=== PATIENT | female | born 1940 | race Caucasian/White ===

== ENCOUNTER → 2020-01-15 14:54 | Outpatient (BNVA) | payer MEDICARE, OTHER, SELFPAY | PROVIDERS: Family Provider Family Medicine; PCP Family Medicine; Visit Provider Nurse Practitioner Family | DX: R39.89 Other symptoms and signs involving the genitourinary system (principal); N30.20 Other chronic cystitis without hematuria | CPT/HCPCS: 81001 ==

== ENCOUNTER → 2020-02-19 12:58 | Outpatient (BNVA) | payer MEDICARE, OTHER, SELFPAY | PROVIDERS: Family Provider Family Medicine; PCP Family Medicine; Visit Provider Nurse Practitioner Family | DX: R39.89 Other symptoms and signs involving the genitourinary system (principal) | CPT/HCPCS: 81001 ==

== ENCOUNTER 2020-04-29 20:00 | Outpatient (CLI) | payer MEDICARE, OTHER, SELFPAY | END 2020-04-29 20:01 | disposition home or self-care (01) | LOC: SLEEP 04-30 10:03 | PROVIDERS: Family Provider Family Medicine; PCP Family Medicine; Visit Provider Family Medicine | DX: G47.33 Obstructive sleep apnea (adult) (pediatric) (principal) | CPT/HCPCS: 95810 ==

== ENCOUNTER 2020-06-02 20:00 | Outpatient (CLI) | payer MEDICARE, OTHER, SELFPAY | END 2020-06-02 20:01 | disposition home or self-care (01) | LOC: SLEEP 06-03 08:52 | PROVIDERS: Family Provider Family Medicine; PCP Family Medicine; Visit Provider Family Medicine | DX: G47.33 Obstructive sleep apnea (adult) (pediatric) (principal) | CPT/HCPCS: 95811 ==

== ENCOUNTER → 2021-03-21 09:58 | Outpatient (BNVA) | payer MEDICARE, OTHER, SELFPAY | PROVIDERS: Family Provider Family Medicine; PCP Family Medicine; Visit Provider Registered Nurse | DX: R39.89 Other symptoms and signs involving the genitourinary system (principal); E03.9 Hypothyroidism, unspecified; E78.5 Hyperlipidemia, unspecified; N30.10 Interstitial cystitis (chronic) without hematuria; Z76.89 Persons encountering health services in other specified circumstances | CPT/HCPCS: 80053; 80061; 81000; 84443; 85025; 87086 ==

== ENCOUNTER → 2021-10-04 14:17 | Outpatient (BNVA) | payer MEDICARE, OTHER, SELFPAY | PROVIDERS: Family Provider Family Medicine; PCP Registered Nurse; Visit Provider Registered Nurse | DX: R39.89 Other symptoms and signs involving the genitourinary system (principal); E03.9 Hypothyroidism, unspecified; I47.9 Paroxysmal tachycardia, unspecified | CPT/HCPCS: 80053; 81000; 84443 ==

== ENCOUNTER → 2021-10-26 13:37 | Outpatient (BNVA) | payer MEDICARE, OTHER, SELFPAY | PROVIDERS: Family Provider Family Medicine; PCP Registered Nurse; Visit Provider Registered Nurse | DX: I47.9 Paroxysmal tachycardia, unspecified (principal) | CPT/HCPCS: 80048 ==

== ENCOUNTER → 2023-01-04 10:58 | Outpatient (BNVA) | payer MEDICARE, OTHER, SELFPAY | PROVIDERS: Visit Provider Family Medicine | DX: Z90.49 Acquired absence of other specified parts of digestive tract (principal); E03.9 Hypothyroidism, unspecified; E55.9 Vitamin D deficiency, unspecified | CPT/HCPCS: 80053; 82306; 82607; 83735; 84100; 84439; 84443; 85025 ==

== ENCOUNTER → 2023-02-06 09:50 | Outpatient (BNVA) | payer MEDICARE, OTHER, SELFPAY | PROVIDERS: PCP Family Medicine; Referring Provider Family Medicine; Visit Provider Surgery | DX: Z95.828 Presence of other vascular implants and grafts (principal) | CPT/HCPCS: 99203 ==

== ENCOUNTER → 2023-02-13 15:32 | Outpatient (BNVA) | payer MEDICARE, OTHER, SELFPAY | PROVIDERS: PCP Family Medicine; Visit Provider Surgery | DX: Z95.828 Presence of other vascular implants and grafts (principal) | CPT/HCPCS: 36590; 99213 ==

== ENCOUNTER 2023-07-24 10:25 | Emergency (ER) | payer MEDICARE, OTHER, SELFPAY ==
--- NOTE | 2023-07-24 10:29 | ECG_ITS ---
[facility] Test Date: 2023-07-24 Pat Name: Stormy Nieves Department: Room: Gender: Female Shipping/Receiving Manager: : 1940 Requested By: Etienne Hinton Order Number: [id number] Renee MD: Elkin Cordon M.D. Measurements Intervals Rodney Rate: 112 P: 0 AR: 0 QRS: -68 QRSD: 85 T: 0 QT: 174 QTc: 238 Interpretive Statements ATRIAL FLUTTER/TACHYCARDIA WITH RAPID VENTRICULAR RESPONSE LEFT AXIS DEVIATION [QRS AXIS < -30] SEPTAL MYOCARDIAL INFARCTION , OF INDETERMINATE AGE [40+ ms Q WAVE IN V1/V2] Nonspecific ST changes. No previous ECG available for comparison Electronically Signed On 07-24-2023 16:54:15 WELDER FITTER HELPER by Elkin Cordon M.D. [id number]
[2023-07-24 10:54] VITALS: BP 140/84; PULSE 114; RESP 18; TEMP 36.4; O2SAT 96; BMI 36.0
[2023-07-24 11:05] LABS: Basophils % 0.9 %; Eosinophils # 0.1 10^3/uL (0.0-0.8); Eosinophils % 1.2 %; Hematocrit 45.7 % (36-47); Lymphocytes # 1.1 10^3/uL (0.8-4.8); Lymphocytes % 26.6 %; Mean Corpuscular HGB Conc 32.6 g/dL (30-55); Mean Corpuscular Hemoglobin 31.2 pg (27-33); Mean Corpuscular Volume 95.6 fl (85-98); Mean Platelet Volume 10.4 fL (7.4-10.4); Monocytes # 0.3 10^3/uL (0.2-0.9); Monocytes % 7.2 %; Neutrophils # 2.72 10^3/uL (1.8-7.7); Neutrophils % 63.6 %; Nucleated Red Blood Cells % 0 %; Platelet Count 228 10^3/cmm (157-399); Red Blood Count 4.78 10^6/uL (3.85-5.65); Red Cell Distribution Width 12.5 % (12.1-15.1); White Blood Count 4.28 10^3/uL (3.29-11.43)
[2023-07-24 11:27] LABS: Alanine Aminotransferase 11 U/L (0-33); Albumin Level 4.3 g/dL (3.5-5.2); Alkaline Phosphatase 68 U/L (35-105); Anion Gap 13.5 (5-19); Aspartate Amino Transferase 14 U/L (0-32); Blood Urea Nitrogen 8 mg/dL (8-23); Calcium 9.9 mg/dL (8.5-10.5); Carbon Dioxide 30 mmol/L (22-29); Chloride 99 mmol/L (98-107); Globulin 3.3 g/dL (1.3-4.6); Glucose 101 mg/dL (65-115); Osmolality Calculated 286 mOsm/kg (285-295); Potassium 3.5 mmol/L (3.5-5.1); Sodium 139 mmol/L (136-145); Total Bilirubin 0.5 mg/dL (0.15-1.2); Total Protein 7.6 g/dL (6.6-8.7)
[2023-07-24 11:40] LABS: Magnesium 1.5 mg/dL (1.7-2.3); Thyroid Stimulating Hormone 6.06 uIU/mL (0.27-4.20)
[2023-07-24 11:46] VITALS: BP 172/116; PULSE 122; RESP 17; O2SAT 97
--- NOTE | 2023-07-24 11:50 | ED_ITS ---
HPI - Arrhythmia/Palpitations 2 General: Chief Complaint: Arrhythmia/Palpitations Stated Complaint: HTN, Weakness Time Seen by Provider: 07/24/23 10:29 History of Present Illness: Patient presents to the ER with A-fib with RVR with her heart rate being in the 120s to 140s. Patient went to get hearing test today and they noticed that. Patient says when she woke up this morning she was in A-fib and has tried her normal course of magnesium and supplements but they did not work today. Patient is not on any type of anticoagulation or rate controlling medicine. Patient does take magnesium 200 mg daily. Patient denies any chest pain nausea vomiting diaphoresis shortness of breath etc. Review of Systems 2 General: Reports: 10 or more systems reviewed and unremarkable except in HPI and below PFSH ED 2 PFSH: Medical History Bladder pain Colon cancer Hypothyroidism Interstitial cystitis Lower urinary tract symptoms Obstructive sleep apnea Surgical History History of bilateral tubal ligation History of cholecystectomy History of colon resection History of eye surgery retina Hx of hysterectomy Family History Father Diabetes Sister Diabetes Cancer leukemia Son Diabetes Other CAD (coronary artery disease) Chronic kidney disease (CKD) Lung disease Denies family history of Clotting disorder Dementia Hyperlipidemia Psychiatric illness Anesthesia complication Bleeding disorder Stroke Social History Smoking and tobacco/nicotine status: never used tobacco/nicotine Alcohol intake: never Substance/Drug Use: never Adopted: No Caregiver/support person: No Lives independently: Yes Marital status: / Current occupational status: retired Current gender identity: Female Special xena needs: No Agree to transfusion: Yes Physical Exam 2 Const: COMMON NORMALS: no acute distress, average body habitus, patient oriented x3, no limitations, healthy appearing, alert and well nourished HENMT: COMMON NORMALS: normocephalic, atraumatic, hearing grossly normal bilaterally, external ears normal, Normal external nose present, moist oral mucous membranes and oropharynx normal HEAD & SCALP: normocephalic and atraumatic NOSE: Normal external nose present EXTERNAL EAR: Yes external ears normal Eye: COMMON NORMALS: Equal, round and reactive pupils present, EOMs intact bilaterally, conjunctivae normal and no scleral icterus CONJUNCTIVA: Yes conjunctivae normal PUPIL: Yes Equal, round and reactive pupils present Neck/C-Spine: COMMON NORMALS: full ROM, no lymphadenopathy, supple, no meningeal signs, no JVD and Thyroid normal THYROID: Thyroid normal Chest: COMMONS NORMALS: normal inspection of the chest and normal palpation of entire chest wall Resp: COMMON NORMALS: normal respiratory effort, No retractions, No use of accessory muscles and clear to auscultation bilaterally AUSCULTATION: clear to auscultation bilaterally Cardio: COMMON NORMALS: no JVD, S1 normal heart sound present, S2 normal heart sound present, No gallops present (Cardio), No clicks present (Cardio), No murmurs present (Cardio) and No rub (Cardio); negative for regular rate (Tachycardic irregularly irregular) and negative for regular rhythm RATE: abnormal rate (Tachycardic irregularly irregular) R HYTHM: abnormal rhythm HEART SOUNDS: S1 normal heart sound present and S2 normal heart sound present GI: COMMON NORMALS: Normal to inspection, nondistended, normoactive bowel sounds present, Soft to palpation, non-tender, No hepatosplenomegaly present and no masses PALPATION: Yes Soft to palpation and Yes No hepatosplenomegaly present Neuro: COMMON NORMALS: patient oriented x3 SENSORIUM/ORIENTATION: Yes alert MENINGEAL SIGNS: Yes no meningeal signs Course 2 Vital Signs: Vital signs: Vital Signs Temperature 97.5 F L 07/24/23 10:54 Pulse Rate 81 07/24/23 12:01 Respiratory Rate 13 07/24/23 12:01 Blood Pressure 175/91 07/24/23 12:01 Pulse Oximetry 96 07/24/23 12:01 Oxygen Delivery Me thod Room Air 07/24/23 12:01 MDM - Arrhythmia/Palpitations Medical Decision Making Patient presents to the ER with complaints of A-fib with RVR. Patient's heart rate was approximately 114 120 bpm. EKG was obtained which documented this. Lab work was obtained which showed patient had subclinical hypothyroidism as well as hypomagnesemia. This was replaced with 1 g magnesium IV. These results was discussed with the patient he will follow-up with her PCP. It was noted that the patient was instructed to take 1 baby aspirin daily. Differential Diagnosis Likely artial fibrillation; Unlikely palpitations, anxiety, sinus tachycardia, artial flutter, ventricular premature beats, supraventricular tachycardia, ventricular tachycardia or WPW Medical Records I reviewed the patient's medical records. Lab Data I reviewed the patient's lab results. 07/24/23 10:50 07/24/23 10:50 Laboratory Results WBC 4.28 10^3/uL (3.29-11.43) 07/24/23 10:50 RBC 4.78 10^6/uL (3.85-5.65) 07/24/23 10:50 Hgb 14.90 g/dL (11.27-16.99) 07/24/23 10:50 Hct 45.7 % (36-47) 07/24/23 10:50 MCV 95.6 fl (85-98) 07/24/23 10:50 MCH 31.2 pg (27-33) 07/24/23 10:50 MCHC 32.6 g/dL (30-55) 07/24/23 10:50 RDW 12.5 % (12.1-15.1) 07/24/23 10:50 Plt Count 228 10^3/cmm (157-399) 07/24/23 10:50 MPV 10.4 fL (7.4-10.4) 07/24/23 10:50 Neut % (Auto) 63.6 % 07/24/23 10:50 Lymph % (Auto) 26.6 % 07/24/23 10:50 [place] % (Auto) 7.2 % 07/24/23 10:50 Eos % (Auto) 1.2 % 07/24/23 10:50 Baso % (Auto) 0.9 % 07/24/23 10:50 Neut # (Auto) 2.72 10^3/uL (1.8-7.7) 07/24/23 10:50 Lymph # (Auto) 1.1 10^3/uL (0.8-4.8) 07/24/23 10:50 [place] # (Auto) 0.3 10^3/uL (0.2-0.9) 07/24/23 10:50 Eos # (Auto) 0.1 10^3/uL (0.0-0.8) 07/24/23 10:50 Baso # (Auto) 0.0 10^3/uL (0.0-0.1) 07/24/23 10:50 Nucleated RBC % (auto) 0 % 07/24/23 10:50 Nucleated RBCs # 0.0 /100WBC 07/24/23 10:50 Sodium 139 mmol/L (136-145) 07/24/23 10:50 Potassium 3.5 mmol/L (3.5-5.1) 07/24/23 10:50 Chloride 99 mmol/L (98-107) 07/24/23 10:50 Carbon Dioxide 30 mmol/L (22-29) H 07/24/23 10:50 Anion Gap 13.5 (5-19) 07/24/23 10:50 BUN 8 mg/dL (8-23) 07/24/23 10:50 Creatinine 0.4 mg/dL (0.5-0.9) L 07/24/23 10:50 GFR Calculation Not Reportable 07/24/23 10:50 Glucose 101 mg/dL (65-115) 07/24/23 10:50 Calculated Osmolality 286 mOsm/kg (285-295) 07/24/23 10:50 Calcium 9.9 mg/dL (8.5-10.5) 07/24/23 10:50 Magnesium 1.5 mg/dL (1.7-2.3) L 07/24/23 10:50 Total Bilirubin 0.5 mg/dL (0.15-1.2) 07/24/23 10:50 AST 14 U/L (0-32) 07/24/23 10:50 ALT 11 U/L (0-33) 07/24/23 10:50 Alkaline Phosphatase 68 U/L (35-105) 07/24/23 10:50 Total Protein 7.6 g/dL (6.6-8.7) 07/24/23 10:50 Albumin 4.3 g/dL (3.5-5.2) 07/24/23 10:50 Globulin 3.3 g/dL (1.3-4.6) 07/24/23 10:50 TSH 6.06 uIU/mL (0.27-4.20) H 07/24/23 10:50 Urine Color Light yellow (Yellow) 07/24/23 11:52 Urine Appearance Clear (CLEAR) 07/24/23 11:52 Urine pH 8 (5-7) H 07/24/23 11:52 Ur Specific [place] 1.010 (1.005-1.030) 07/24/23 11:52 Urine Protein Neg (Negative) 07/24/23 11:52 Urine Glucose (UA) Norm (Normal) 07/24/23 11:52 Urine Ketones 1+ (Negative) H 07/24/23 11:52 Urine Blood 2+ (Negative) H 07/24/23 11:52 Urine Nitrate Negative (Negative) 07/24/23 11:52 Urine Bilirubin Neg (Negative) 07/24/23 11:52 Prot Sulfosalicylic Acd Negative (Negative) 07/24/23 11:52 Urine Urobilinogen Norm mg/dL (Negative) 07/24/23 11:52 Ur Leukocyte Esterase Negative (Negative) 07/24/23 11:52 Urine RBC 5-10 /hpf (0-2) H 07/24/23 11:52 Urine WBC 0-4 /hpf (0-5) H 07/24/23 11:52 Ur Squamous Epith Cells Rare /hpf (0-5) 07/24/23 11:52 Amorphous Sediment Not Reportable 07/24/23 11:52 Urine Bacteria None /hpf (NONE) 07/24/23 11:52 Urine Mucus None /hpf 07/24/23 11:52 All radiology interpretation(s) finalized by discharge EKG Data EKG 1: I personally reviewed and interpreted this EKG as follows: EKG interpretation date: 07/24/23 EKG interpretation time: 11:00 Prior EKG tracings: not available for review Interpretation: EKG shows ventricular rate 112 bpm, QRS duration 85, QTc of 240, atrial flutter/tachycardia with RVR, left axis deviation, possible right ventricular conduction delay, Discharge Plan Discharge Patient Disposition: Home Clinical Impression: Hypomagnesemia Atrial fibrillation Qualifiers: Atrial fibrillation type: paroxysmal Qualified Code(s): I48.0 - Paroxysmal atrial fibrillation Condition: Stable Prescriptions: No Action Daily Multivitamin-Minerals Tablet 1 tab PO DAILY cholecalciferol (vitamin D3) 25 mcg (1,000 unit) capsule 25 mcg PO DAILY ginkgo biloba 40 mg tablet 40 mg PO DAILY Rx Instructions: give with meal/snack diphenhydramine HCl [Benadryl] 25 mg capsule 25 mg PO BEDTIME magnesium 200 mg tablet 200 mg PO DAILY Zyrtec 10 mg Tablet 10 mg PO DAILY levothyroxine 100 mcg tablet 100 mcg PO DAILY Vitamin B-12 500 mcg Tablet 500 mcg PO DAILY Probiotic 3 billion cell Capsule 3,000 mmu cells PO DAILY Rx Instructions: administer with a meal Eye Vitamin and Minerals 7,160-113-100 [id number] Tablet 1 tab PO DAILY potassium citrate 99 mg Capsule 99 mg PO DAILY Discharge Orders: Discharge ED (Routine); Ordered 07/24/23 Ordered By: Bryce Arevalo Referrals: Chidi Sarmiento MD [Primary Care Provider] - 7-10 days Patient Instructions: A-fib (Atrial Fibrillation) (ED), Hypomagnesemia (ED) Activity Restrictions/Additional Instructions: Please continue with your [id number] supplementation of your magnesium. Please add on 1 baby aspirin daily. Please follow-up with your family practice physician within the next 7 to 10 days for further evaluation and treatment and comparison of lab work. If your symptoms return please feel free to return to the ER. Coding Level of Care Code ED Orthotic Fitter for Michael Riojas
[2023-07-24 12:01] VITALS: BP 175/91; PULSE 81; RESP 13; O2SAT 96
[2023-07-24 12:24] LABS: Protein Urine Neg (Negative); Urine Appearance Clear (CLEAR); Urine Color Light yellow (Yellow); pH Urine 8 (5-7)
[2023-07-24 12:25] LABS: Add Urine Microscopic? YES; Bilirubin Urine Neg (Negative); Blood Urine 2+ (Negative); Glucose Urine UA Norm (Normal); Ketones Urine 1+ (Negative); Leukocyte Esterase Urine Negative (Negative); Nitrate Urine Negative (Negative); Sulfosalicylic Acid Urine Negative (Negative); Urobilinogen Urine Norm (Negative)
[2023-07-24 12:28] LABS: Add Urine Culture? No; Squamous Epithelial Cell Urine RARE /hpf (0-5); WBC Urine 0-4 /hpf (0-5)
[2023-07-24] MEDS: magnesium sulfate premix 1 GM/100 ML PIGGYBACK IV (12:32)
[2023-07-24 13:29] VITALS: BP 127/71; PULSE 83; RESP 14; TEMP 36.8; O2SAT 97
== END 2023-07-24 13:31 | disposition home or self-care (01) ==
PROVIDERS: Family Medicine; Emergency Provider Emergency Medicine; PCP Family Medicine
DX: I48.0 Paroxysmal atrial fibrillation (principal); E83.42 Hypomagnesemia; Z85.038 Personal history of other malignant neoplasm of large intestine
CPT/HCPCS: 36415; 80053; 81001; 83735; 84443; 85025; 93005; 96365; 99284; J3475

== ENCOUNTER → 2023-10-22 11:28 | Outpatient (BNVA) | payer MEDICARE, OTHER, SELFPAY | PROVIDERS: PCP Family Medicine; Visit Provider Family Medicine | DX: R74.8 Abnormal levels of other serum enzymes (principal); E03.9 Hypothyroidism, unspecified; E83.42 Hypomagnesemia; R60.0 Localized edema; E55.9 Vitamin D deficiency, unspecified | CPT/HCPCS: 80053; 82306; 82607; 83735; 84439; 84443 ==

== ENCOUNTER 2023-10-24 14:42 | Outpatient (CLI) | payer MEDICARE, OTHER, SELFPAY ==
--- NOTE | 2023-10-24 15:15 | USCV_ITS ---
Ezequiel Stormy Age: 83 Gender: F : 1940 Exam Date: 10/24/2023 15:16 Ordering Phys: Chidi Sarmiento MD Technologist: BAN [place] [facility] [place]: A FIB BP: 118 / 76 HR: 90 Rhythm: Atrial fibrillation Technical Quality: Adequate MEASUREMENTS (Male / Female) Normal Values 2D ECHO LV Diastolic Diameter PLAX 4.0 cm 4.2 - 5.9 / 3.9 - 5.3 cm IVS Diastolic Thickness 1.2 cm 0.6 - 1.0 / 0.6 - 0.9 cm IVS Systolic Thickness 2.3 cm LVPW Diastolic Thickness 1.8 cm 0.6 - 1.0 / 0.6 - 0.9 cm LVPW Systolic Thickness 2.5 cm LVOT Diameter 2.0 cm LV Ejection Fraction 2D Teich 66.1 % LV Ejection Fraction MOD 2C 56.3 % LV Ejection Fraction 2C AL 0.0 % LA Diameter 4.0 cm RA Systolic Volume 4C AL 50.3 ml RA Systolic Volume 4C MOD 48.1 ml Aorta at Sinotubular Diameter 2.4 cm IVC Diameter 2.2 cm M-MODE LA Ao Ratio MM 1.4 AV Cusp Separation MM 1.5 cm DOPPLER AV Peak Velocity 115.0 cm/s LVOT Peak Velocity 81.0 cm/s AV Area Cont Eq vti 1.8 cm squared AV Area Cont Eq pk 2.2 cm squared MV Peak Velocity 121.0 cm/s MV Area PHT 5.6 cm squared Mitral E to A Ratio 286.0 TV Peak E Velocity 81.0 cm/s PV Peak Velocity 107.0 cm/s FINDINGS Left Ventricle Normal LV size ejection fraction of 56%. No gross wall motion abnormality. Because of atrial fibrillation, the segmental wall motion analysis and ejection fraction estimation could be misleading. Right Ventricle Normal RV size and ejection fraction Right Atrium Moderately increased right atrial size. Left Atrium Moderate left atrial enlargement Mitral Valve Mild-moderate mitral valve regurgitation. Aortic Valve No gross abnormalities noted Tricuspid Valve Moderate tricuspid valve regurgitation. Estimated pulmonary artery peak systolic pressure 43 mmHg Pulmonic Valve Mild pulmonary valve regurgitation. Pericardium Trivial pericardial effusion. Aorta Normal aortic annulus size. IVC Normal IVC dimension with <50% respiratory change of the inferior vena cava. CONCLUSIONS Normal LV size ejection fraction of 56%. No gross wall motion abnormality. Because of atrial fibrillation, the segmental wall motion analysis and ejection fraction estimation could be misleading. Moderate biatrial enlargement. Mild-moderate mitral valve regurgitation. Moderate tricuspid valve regurgitation. . Estimated pulmonary artery peak systolic pressure 43 mmHg. Mild pulmonary valve regurgitation. There is no pericardial effusion. There are no intracardiac masses. No similar previous studies are available for comparison Dr Jamal Severino MD [facility] (Electronically Signed) Final Date: 24 October 2023 20:05 S
== END 2023-10-24 14:43 | disposition home or self-care (01) ==
LOC: RAD 14:42
PROVIDERS: PCP Family Medicine; Visit Provider Family Medicine
DX: I08.1 Rheumatic disorders of both mitral and tricuspid valves (principal); R60.0 Localized edema; I48.91 Unspecified atrial fibrillation
CPT/HCPCS: 93306

== ENCOUNTER → 2023-11-29 11:11 | Outpatient (BNVA) | payer MEDICARE, OTHER, SELFPAY | PROVIDERS: PCP Family Medicine; Visit Provider Family Medicine | DX: R60.0 Localized edema | CPT/HCPCS: 80053; 81000; 82306; 82607; 83735 ==

== ENCOUNTER → 2023-12-04 11:32 | Outpatient (BNVA) | payer MEDICARE, OTHER, SELFPAY | PROVIDERS: PCP Family Medicine; Visit Provider Family Medicine | DX: E67.8 Other specified hyperalimentation; E83.42 Hypomagnesemia | CPT/HCPCS: 80053; 82306; 82607; 83735 ==